=== PATIENT | female | born 1960 | race Caucasian/White ===

== ENCOUNTER 2021-07-27 16:15 | Inpatient (IN) ==
[2021-07-27] MEDS ORDERED: *HR* FentaNYL (PF) 100 MCG/2 ML VIAL IM ONE (18:39)
[2021-07-27 21:35] LABS: Hematocrit 39.7 % (35.3-44.9); Hemoglobin 13.4 g/dL (11.5-15.4); Mean Corpuscular HGB Conc 33.8 g/dL (31.6-35.5); Mean Corpuscular Volume 88.8 fL (83.0-100.0); Mean Platelet Volume 9.2 fL (9.4-12.4); Platelet Count 214 K/mcL (140-400); Red Blood Count 4.47 M/mcL (3.82-4.97); Red Cell Distribution Width 12.5 % (11.5-14.5); White Blood Count 12.4 K/mcL (4.3-11.1)
[2021-07-27 21:54] LABS: Alanine Aminotransferase 10 Units/L (7-52); Albumin/Globulin Ratio 1.4 (1.1-2.2); Alkaline Phosphatase 122 Units/L (34-104); Aspartate Amino Transferase 9 Units/L (13-39); BUN/Creatinine Ratio 14 (6-26); Bilirubin,Total 0.4 mg/dL (0.3-1.0); Blood Urea Nitrogen 7 mg/dL (8-23); Calcium 9.1 mg/dL (8.6-10.3); Carbon Dioxide 33 mEq/L (23-29); Chloride 96 mEq/L (98-107); Globulin 2.8 g/dL (2.4-3.5); Glucose 199 mg/dL (70-105); Osmolality,Calculated 290 (280-300); Potassium 3.2 mEq/L (3.5-5.1); Sodium 138 mEq/L (136-145); Total Protein 6.8 g/dL (6.4-8.9); eGFR For African Americans > 60 (> 60); eGFR For Non-African Americans > 60 (> 60)
[2021-07-27] MEDS ORDERED: *HR* FentaNYL (PF) 100 MCG/2 ML VIAL IVP ONE (22:05)
[2021-07-27] MEDS ORDERED: Acetaminophen 325 MG TABLET PO PRN (22:16)
[2021-07-27] MEDS ORDERED: Naloxone 0.4 MG/ML INJ IVP PRN (22:16)
[2021-07-27] MEDS ORDERED: Ondansetron 4 MG/2 ML VIAL IVP PRN (22:16)
[2021-07-27] MEDS ORDERED: Melatonin 3 MG TABLET PO PRN (22:16)
[2021-07-27] MEDS ORDERED: Isovue-370 500 ML BOTTLE IVP ONE (22:17)
[2021-07-27 22:28] LABS: Lymphocytes # 2.5 K/mcL (0.6-4.6); Monocytes # 0.5 K/mcL (0.0-1.3); Neutrophils # 9.4 K/mcL (1.6-8.9); Platelet Estimate Normal (Normal)
[2021-07-27] MEDS ORDERED: Nicotine 21 MG PATCH.TD24 TD ONE (22:42)
[2021-07-27] MEDS: 0.9 % Sodium Chloride 1,000 ML IVC SCH (23:25)
[2021-07-27 23:30] LABS: Bilirubin,Urine Negative (Negative); Blood,Urine Negative (Negative); Clarity,Urine Clear (Clear); Color,Urine Light-Yellow (Yellow); Glucose,Urine (UA) Normal (Normal); Ketones,Urine Negative (Negative); Leukocyte Esterase,Urine Negative (Negative); Nitrite,Urine Negative (Negative); PH,Urine 6.5 pH Units (5.0-8.0); Protein,Urine Trace mg/dL (Neg-Trace); Specific Gravity,Urine > 1.030 (1.010-1.025); Urobilinogen,Urine Normal (Normal)
[2021-07-28] MEDS ORDERED: methylPREDNISolone 125 MG/2 ML VIAL IVP ONE (00:06)
[2021-07-28 00:36] LABS: Basophils # 0.1 K/mcL (0.0-0.2); Basophils % 0.9 %; Eosinophils # 0.4 K/mcL (0.0-0.6); Eosinophils % 2.9 %; Hemoglobin 12.6 g/dL (11.5-15.4); Immature Granulocytes % 4.9 % (0-4); Lymphocytes % 15.5 %; Mean Corpuscular Hemoglobin 30.4 pg (28.0-33.3); Mean Platelet Volume 9.5 fL (9.4-12.4); Monocytes % 7.8 %; Neutrophils # 8.6 K/mcL (1.6-8.9); Platelet Count 200 K/mcL (140-400); Red Blood Count 4.14 M/mcL (3.82-4.97); Red Cell Distribution Width 12.5 % (11.5-14.5); White Blood Count 12.6 K/mcL (4.3-11.1)
[2021-07-28] MEDS: *HR* LORazepam 0.5 MG TABLET PO PRN ×2 (00:39→19:56)
[2021-07-28 00:43] LABS: INR 1.2
[2021-07-28 00:46] LABS: Activated Partial Thrombo Time 30.2 Seconds (26.0-36.0)
[2021-07-28 00:51] LABS: Alanine Aminotransferase 9 Units/L (7-52); Albumin 3.6 g/dL (3.5-5.7); Albumin/Globulin Ratio 1.4 (1.1-2.2); Alkaline Phosphatase 107 Units/L (34-104); Aspartate Amino Transferase 9 Units/L (13-39); BUN/Creatinine Ratio 15 (6-26); Bilirubin,Total 0.4 mg/dL (0.3-1.0); Blood Urea Nitrogen 6 mg/dL (8-23); Calcium 8.4 mg/dL (8.6-10.3); Carbon Dioxide 31 mEq/L (23-29); Chloride 97 mEq/L (98-107); Globulin 2.5 g/dL (2.4-3.5); Glucose 136 mg/dL (70-105); Magnesium 1.8 mg/dL (1.6-2.6); Osmolality,Calculated 280 (280-300); Phosphorous 3.3 mg/dL (2.7-4.5); Potassium 2.9 mEq/L (3.5-5.1); Sodium 135 mEq/L (136-145); Total Protein 6.1 g/dL (6.4-8.9); eGFR For African Americans > 60 (> 60); eGFR For Non-African Americans > 60 (> 60)
[2021-07-28] MEDS: Ipratropium/Albuterol Neb 3 ML IH SCH ×4 (03:27→22:20)
[2021-07-28] MEDS ORDERED: *HR* Dextrose 50 % in Water (Syg) 50 ML SYRINGE IVP PRN (04:48)
[2021-07-28] MEDS ORDERED: D5% in Water 1,000 ML IVC PRN (04:48)
[2021-07-28] MEDS ORDERED: Dextrose 4 GM Chewable Tablets PO PRN ×2 (04:48)
[2021-07-28] MEDS: predniSONE 20 MG TABLET PO SCH (08:04)
[2021-07-28] MEDS: Chlorhexidine Rinse 15 ML MOUTHWASH MM SCH ×2 (08:04→19:51)
[2021-07-28] MEDS: Cholecalciferol (D-3) 1,000 UNIT (25MCG) TABLET PO SCH (08:04)
[2021-07-28] MEDS: Multivit/Ca/Min/Fe/FA 1 TAB TABLET PO SCH (08:04)
[2021-07-28] MEDS: hydroCHLOROthiazide 25 MG TABLET PO SCH (08:45)
[2021-07-28] MEDS: Budesonide/Formoterol 160/4.5 1 PUFF INH IH SCH ×2 (09:30→22:21)
[2021-07-28] MEDS ORDERED: Isovue-370 500 ML BOTTLE IVP ONE (15:01)
[2021-07-28] MEDS: 0.9 % Sodium Chloride 1,000 ML IVC SCH (16:00)
[2021-07-29 01:05] LABS: Basophils # 0.1 K/mcL (0.0-0.2); Basophils % 0.3 %; Eosinophils % 0.1 %; Hematocrit 34.4 % (35.3-44.9); Hemoglobin 11.3 g/dL (11.5-15.4); Immature Granulocytes % 4.8 % (0-4); Lymphocytes # 1.9 K/mcL (0.6-4.6); Lymphocytes % 11.4 %; Mean Corpuscular HGB Conc 32.8 g/dL (31.6-35.5); Mean Corpuscular Hemoglobin 29.4 pg (28.0-33.3); Mean Corpuscular Volume 89.4 fL (83.0-100.0); Mean Platelet Volume 9.7 fL (9.4-12.4); Monocytes % 6.1 %; Neutrophils # 12.7 K/mcL (1.6-8.9); Platelet Count 213 K/mcL (140-400); Red Blood Count 3.85 M/mcL (3.82-4.97); Red Cell Distribution Width 12.3 % (11.5-14.5); Segmented Neutrophils % 77.3 %; White Blood Count 16.4 K/mcL (4.3-11.1)
[2021-07-29 01:43] LABS: Alanine Aminotransferase 7 Units/L (7-52); Albumin 3.6 g/dL (3.5-5.7); Albumin/Globulin Ratio 1.4 (1.1-2.2); Alkaline Phosphatase 96 Units/L (34-104); Aspartate Amino Transferase 8 Units/L (13-39); BUN/Creatinine Ratio 19 (6-26); Bilirubin,Total 0.4 mg/dL (0.3-1.0); Blood Urea Nitrogen 11 mg/dL (8-23); Calcium 8.8 mg/dL (8.6-10.3); Carbon Dioxide 33 mEq/L (23-29); Chloride 96 mEq/L (98-107); Globulin 2.6 g/dL (2.4-3.5); Glucose 133 mg/dL (70-105); Osmolality,Calculated 281 (280-300); Potassium 4.3 mEq/L (3.5-5.1); Sodium 135 mEq/L (136-145); Total Protein 6.2 g/dL (6.4-8.9); eGFR For African Americans > 60 (> 60); eGFR For Non-African Americans > 60 (> 60)
[2021-07-29] MEDS: Ipratropium/Albuterol Neb 3 ML IH SCH ×4 (04:05→22:06)
[2021-07-29] MEDS: *HR* Enoxaparin 40 MG/0.4 ML SYRINGE SQ SCH (06:23)
[2021-07-29] MEDS: Multivit/Ca/Min/Fe/FA 1 TAB TABLET PO SCH (08:08)
[2021-07-29] MEDS: Chlorhexidine Rinse 15 ML MOUTHWASH MM SCH (08:08)
[2021-07-29] MEDS: hydroCHLOROthiazide 25 MG TABLET PO SCH (08:08)
[2021-07-29] MEDS: Cholecalciferol (D-3) 1,000 UNIT (25MCG) TABLET PO SCH (08:08)
[2021-07-29] MEDS: predniSONE 20 MG TABLET PO SCH (08:09)
[2021-07-29] MEDS: Budesonide/Formoterol 160/4.5 1 PUFF INH IH SCH (09:50)
[2021-07-29] MEDS ORDERED: 0.9 % Sodium Chloride 500 ML ONE (13:41)
[2021-07-29] MEDS: Nicotine 21 MG PATCH.TD24 TD SCH (14:50)
[2021-07-29] MEDS: *HR* LORazepam 0.5 MG TABLET PO PRN (20:29)
[2021-07-29] MEDS: QUEtiapine Fumarate 25 MG TABLET PO SCH (20:29)
[2021-07-29] MEDS: Gabapentin 100 MG CAPSULE PO SCH (20:29)
[2021-07-30] MEDS: Ipratropium/Albuterol Neb 3 ML IH SCH ×4 (03:24→19:57)
[2021-07-30 05:14] LABS: Basophils % 0.4 %; Eosinophils # 0.1 K/mcL (0.0-0.6); Eosinophils % 0.8 %; Hematocrit 34.3 % (35.3-44.9); Hemoglobin 11.5 g/dL (11.5-15.4); Immature Granulocytes % 3.1 % (0-4); Mean Corpuscular HGB Conc 33.5 g/dL (31.6-35.5); Mean Corpuscular Hemoglobin 30.1 pg (28.0-33.3); Mean Corpuscular Volume 89.8 fL (83.0-100.0); Mean Platelet Volume 9.4 fL (9.4-12.4); Monocytes # 0.7 K/mcL (0.0-1.3); Neutrophils # 6.6 K/mcL (1.6-8.9); Platelet Count 171 K/mcL (140-400); Red Blood Count 3.82 M/mcL (3.82-4.97); Red Cell Distribution Width 12.7 % (11.5-14.5); Segmented Neutrophils % 61.7 %; White Blood Count 10.8 K/mcL (4.3-11.1)
[2021-07-30] MEDS: *HR* Enoxaparin 40 MG/0.4 ML SYRINGE SQ SCH (05:34)
[2021-07-30 05:37] LABS: BUN/Creatinine Ratio 26 (6-26); Blood Urea Nitrogen 14 mg/dL (8-23); Calcium 8.4 mg/dL (8.6-10.3); Carbon Dioxide 33 mEq/L (23-29); Chloride 99 mEq/L (98-107); Glucose 111 mg/dL (70-105); Osmolality,Calculated 285 (280-300); Potassium 3.4 mEq/L (3.5-5.1); Sodium 137 mEq/L (136-145); eGFR For African Americans > 60 (> 60); eGFR For Non-African Americans > 60 (> 60)
[2021-07-30] MEDS: hydroCHLOROthiazide 25 MG TABLET PO SCH (08:15)
[2021-07-30] MEDS: Aspirin 81 MG TAB.CHEW PO SCH (08:15)
[2021-07-30] MEDS: Cholecalciferol (D-3) 1,000 UNIT (25MCG) TABLET PO SCH (08:15)
[2021-07-30] MEDS: Gabapentin 100 MG CAPSULE PO SCH ×3 (08:15→20:59)
[2021-07-30] MEDS: ARIPiprazole 5 MG TABLET PO SCH (08:16)
[2021-07-30] MEDS: predniSONE 20 MG TABLET PO SCH (08:16)
[2021-07-30] MEDS: *HR* LORazepam 0.5 MG TABLET PO PRN ×2 (08:16→17:28)
[2021-07-30] MEDS: Multivit/Ca/Min/Fe/FA 1 TAB TABLET PO SCH (08:16)
[2021-07-30] MEDS: Nicotine 21 MG PATCH.TD24 TD SCH (08:16)
[2021-07-30] MEDS: Tiotropium 10 INH DOSE IH SCH (11:32)
[2021-07-30] MEDS: QUEtiapine Fumarate 25 MG TABLET PO SCH (20:58)
[2021-07-31] MEDS: Ipratropium/Albuterol Neb 3 ML IH SCH ×2 (03:40→10:19)
[2021-07-31 04:06] LABS: Basophils # 0.1 K/mcL (0.0-0.2); Basophils % 0.6 %; Eosinophils # 0.1 K/mcL (0.0-0.6); Eosinophils % 0.9 %; Hematocrit 36.5 % (35.3-44.9); Hemoglobin 12.1 g/dL (11.5-15.4); Immature Granulocytes % 4.7 % (0-4); Lymphocytes # 3.7 K/mcL (0.6-4.6); Mean Corpuscular HGB Conc 33.2 g/dL (31.6-35.5); Mean Corpuscular Hemoglobin 29.8 pg (28.0-33.3); Mean Corpuscular Volume 89.9 fL (83.0-100.0); Mean Platelet Volume 10.1 fL (9.4-12.4); Monocytes # 0.8 K/mcL (0.0-1.3); Monocytes % 6.3 %; Neutrophils # 7.4 K/mcL (1.6-8.9); Platelet Count 219 K/mcL (140-400); Red Blood Count 4.06 M/mcL (3.82-4.97); Red Cell Distribution Width 12.5 % (11.5-14.5); Segmented Neutrophils % 58.5 %; White Blood Count 12.6 K/mcL (4.3-11.1)
[2021-07-31 04:23] LABS: BUN/Creatinine Ratio 25 (6-26); Blood Urea Nitrogen 13 mg/dL (8-23); Calcium 8.8 mg/dL (8.6-10.3); Carbon Dioxide 32 mEq/L (23-29); Chloride 98 mEq/L (98-107); Glucose 96 mg/dL (70-105); Osmolality,Calculated 284 (280-300); Potassium 3.8 mEq/L (3.5-5.1); Sodium 137 mEq/L (136-145); eGFR For African Americans > 60 (> 60); eGFR For Non-African Americans > 60 (> 60)
[2021-07-31] MEDS: *HR* Enoxaparin 40 MG/0.4 ML SYRINGE SQ SCH (05:10)
[2021-07-31] MEDS: Nicotine 21 MG PATCH.TD24 TD SCH (09:10)
[2021-07-31] MEDS: Gabapentin 100 MG CAPSULE PO SCH (09:10)
[2021-07-31] MEDS: Multivit/Ca/Min/Fe/FA 1 TAB TABLET PO SCH (09:10)
[2021-07-31] MEDS: ARIPiprazole 5 MG TABLET PO SCH (09:10)
[2021-07-31] MEDS: predniSONE 20 MG TABLET PO SCH (09:11)
[2021-07-31] MEDS: hydroCHLOROthiazide 25 MG TABLET PO SCH (09:11)
[2021-07-31] MEDS: Aspirin 81 MG TAB.CHEW PO SCH (09:11)
[2021-07-31] MEDS: Cholecalciferol (D-3) 1,000 UNIT (25MCG) TABLET PO SCH (09:11)
[2021-07-31] MEDS: Tiotropium 10 INH DOSE IH SCH (10:19)
[2021-07-31 10:21] VITALS: O2SAT 95
[2021-07-31 10:44] VITALS: BP 109/67; PULSE 71; TEMP 98.1
== END 2021-07-31 12:46 | disposition home or self-care (01) | DRG 478 ==
LOC: EMEROOARM 16:15 → 4WAOSI 16:15 → OBSVTOIN 22:19 → SUATTDRO 22:19 → 4WAOSI 22:47
PROVIDERS: ADMIT Internal Medicine; ATTEND Internal Medicine

== ENCOUNTER 2021-08-25 06:01 | Inpatient (IN) ==
[2021-08-25] MEDS ORDERED: Celecoxib 200 MG CAPSULE PO ONE (06:17)
[2021-08-25] MEDS ORDERED: CeFAZolin Syr 2,000MG/20 ML 2,000 MG/20 ML SYRINGE IVPB ONE (06:26)
[2021-08-25] MEDS ORDERED: Acetaminophen IV 1,000 MG/100 ML BAG IVPB ONE (06:30)
[2021-08-25] MEDS ORDERED: Famotidine 20 MG/2 ML VIAL IVP ONE (06:30)
[2021-08-25] MEDS ORDERED: Albuterol 2.5 MG/3 ML NEBULIZER IH ONE (06:33)
[2021-08-25] MEDS: Ringers Solution, Lactated 1,000 ML IVC SCH ×2 (06:39→09:55)
[2021-08-25] MEDS ORDERED: *HR* FentaNYL (PF) 100 MCG/2 ML VIAL ONE (06:49)
[2021-08-25] MEDS ORDERED: Lidocaine -MPF 2% 2 ML VIAL ONE (06:49)
[2021-08-25] MEDS ORDERED: *HR* Midazolam HCl 2 MG/2 ML VIAL ONE (06:50)
[2021-08-25] MEDS ORDERED: Povidone-Iodine 45 ML, Sodium Chloride IRRigation 1,000 ML IR ONE (07:30)
[2021-08-25] MEDS ORDERED: EPHEDrine 50 MG/ML VIAL ONE (07:50)
[2021-08-25] MEDS ORDERED: Tranexamic Acid 1,000 MG/10 ML VIAL ONE ×2 (08:08→09:01)
[2021-08-25] MEDS ORDERED: Ondansetron 4 MG/2 ML VIAL ONE (09:01)
[2021-08-25] MEDS ORDERED: *HR* OxyCODONE Immed Rel 5 MG TABLET PO PRN ×5 (09:48→14:16)
[2021-08-25] MEDS ORDERED: *HR* OxyCODONE Immed Rel 5 MG TABLET PO ONE (10:49)
[2021-08-25] MEDS ORDERED: MOM Conc 10 ML UD.LIQ PO PRN ×2 (13:16→14:16)
[2021-08-25] MEDS ORDERED: *HR* Promethazine 25 MG/ML VIAL IM PRN ×2 (13:16→14:16)
[2021-08-25] MEDS ORDERED: *HR* HYDROmorphone (PF) 1 MG/ML SYRINGE IVP PRN ×2 (13:16→14:16)
[2021-08-25] MEDS ORDERED: Sennosides 8.6 MG TABLET PO PRN ×2 (13:16→14:16)
[2021-08-25] MEDS ORDERED: Ondansetron 4 MG/2 ML VIAL IVP PRN ×2 (13:16→14:16)
[2021-08-25] MEDS ORDERED: Naloxone 0.4 MG/ML INJ IVP PRN ×2 (13:16→14:16)
[2021-08-25] MEDS ORDERED: Ringers Solution, Lactated 1,000 ML IVC SCH (13:16)
[2021-08-25] MEDS ORDERED: Ketorolac 30 MG/ML VIAL IVP SCH (13:16)
[2021-08-25] MEDS: Ketorolac 30 MG/ML VIAL IVP SCH ×2 (15:15→21:32)
[2021-08-25] MEDS ORDERED: CeFAZolin 2 GM/120 ML BAG IVPB SCH (16:00)
[2021-08-25] MEDS: CeFAZolin 2 GM/120 ML BAG IVPB SCH ×2 (16:30→23:44)
[2021-08-25] MEDS: Ascorbic Acid 500 MG TABLET PO SCH (16:35)
[2021-08-25] MEDS ORDERED: Ascorbic Acid 500 MG TABLET PO SCH (17:00)
[2021-08-25] MEDS ORDERED: QUEtiapine Fumarate 25 MG TABLET PO SCH (21:00)
[2021-08-25] MEDS ORDERED: Apixaban 5 MG TABLET PO SCH (21:00)
[2021-08-25] MEDS: Apixaban 5 MG TABLET PO SCH (21:30)
[2021-08-25] MEDS: QUEtiapine Fumarate 25 MG TABLET PO SCH (21:31)
[2021-08-26] MEDS: Ketorolac 30 MG/ML VIAL IVP SCH ×4 (02:05→22:48)
[2021-08-26] MEDS: Apixaban 5 MG TABLET PO SCH ×2 (08:43→19:53)
[2021-08-26] MEDS: hydroCHLOROthiazide 25 MG TABLET PO SCH (08:43)
[2021-08-26] MEDS: Loratadine 10 MG TABLET PO SCH (08:44)
[2021-08-26] MEDS: Ascorbic Acid 500 MG TABLET PO SCH ×2 (08:44→15:52)
[2021-08-26] MEDS: Multivit/Ca/Min/Fe/FA 1 TAB TABLET PO SCH (08:44)
[2021-08-26] MEDS ORDERED: hydroCHLOROthiazide 25 MG TABLET PO SCH (09:00)
[2021-08-26] MEDS ORDERED: Loratadine 10 MG TABLET PO SCH (09:00)
[2021-08-26] MEDS ORDERED: Multivit/Ca/Min/Fe/FA 1 TAB TABLET PO SCH (09:00)
[2021-08-26 09:06] LABS: Basophils % 0.3 %; Eosinophils % 0.2 %; Hematocrit 25.9 % (35.3-44.9); Hemoglobin 8.7 g/dL (11.5-15.4); Immature Granulocytes % 1.6 % (0-4); Lymphocytes # 1.3 K/mcL (0.6-4.6); Lymphocytes % 14.2 %; Mean Corpuscular HGB Conc 33.6 g/dL (31.6-35.5); Mean Corpuscular Hemoglobin 30.3 pg (28.0-33.3); Mean Corpuscular Volume 90.2 fL (83.0-100.0); Mean Platelet Volume 10.1 fL (9.4-12.4); Monocytes # 0.6 K/mcL (0.0-1.3); Monocytes % 6.8 %; Neutrophils # 6.9 K/mcL (1.6-8.9); Platelet Count 214 K/mcL (140-400); Red Blood Count 2.87 M/mcL (3.82-4.97); Red Cell Distribution Width 12.4 % (11.5-14.5); Segmented Neutrophils % 76.9 %; White Blood Count 8.9 K/mcL (4.3-11.1)
[2021-08-26 09:25] LABS: BUN/Creatinine Ratio 16 (6-26); Blood Urea Nitrogen 7 mg/dL (8-23); Calcium 8.9 mg/dL (8.6-10.3); Carbon Dioxide 31 mEq/L (23-29); Chloride 98 mEq/L (98-107); Glucose 100 mg/dL (70-105); Osmolality,Calculated 278 (280-300); Potassium 3.8 mEq/L (3.5-5.1); Sodium 135 mEq/L (136-145); eGFR For African Americans > 60 (> 60); eGFR For Non-African Americans > 60 (> 60)
[2021-08-26] MEDS ORDERED: Tiotropium 10 INH DOSE IH SCH (10:00)
[2021-08-26] MEDS: Tiotropium 10 INH DOSE IH SCH (10:09)
[2021-08-26] MEDS: QUEtiapine Fumarate 25 MG TABLET PO SCH (22:48)
[2021-08-27] MEDS: Ketorolac 30 MG/ML VIAL IVP SCH ×2 (05:22→10:06)
[2021-08-27] MEDS: Tiotropium 10 INH DOSE IH SCH (08:01)
[2021-08-27 09:18] LABS: BUN/Creatinine Ratio 24 (6-26); Blood Urea Nitrogen 13 mg/dL (8-23); Calcium 8.6 mg/dL (8.6-10.3); Carbon Dioxide 32 mEq/L (23-29); Chloride 98 mEq/L (98-107); Glucose 167 mg/dL (70-105); Osmolality,Calculated 288 (280-300); Potassium 3.4 mEq/L (3.5-5.1); Sodium 137 mEq/L (136-145); eGFR For African Americans > 60 (> 60); eGFR For Non-African Americans > 60 (> 60)
[2021-08-27 09:34] LABS: Basophils % 0.6 %; Eosinophils # 0.1 K/mcL (0.0-0.6); Eosinophils % 1.3 %; Hemoglobin 9.1 g/dL (11.5-15.4); Immature Granulocytes % 2.3 % (0-4); Lymphocytes # 1.4 K/mcL (0.6-4.6); Lymphocytes % 22.4 %; Mean Corpuscular HGB Conc 33.7 g/dL (31.6-35.5); Mean Corpuscular Hemoglobin 30.1 pg (28.0-33.3); Mean Corpuscular Volume 89.4 fL (83.0-100.0); Mean Platelet Volume 10.6 fL (9.4-12.4); Monocytes # 0.3 K/mcL (0.0-1.3); Monocytes % 4.4 %; Neutrophils # 4.4 K/mcL (1.6-8.9); Platelet Count 228 K/mcL (140-400); Red Blood Count 3.02 M/mcL (3.82-4.97); Red Cell Distribution Width 12.6 % (11.5-14.5); White Blood Count 6.4 K/mcL (4.3-11.1)
[2021-08-27] MEDS: hydroCHLOROthiazide 25 MG TABLET PO SCH (10:04)
[2021-08-27] MEDS: Apixaban 5 MG TABLET PO SCH (10:05)
[2021-08-27] MEDS: Multivit/Ca/Min/Fe/FA 1 TAB TABLET PO SCH (10:06)
[2021-08-27] MEDS: Loratadine 10 MG TABLET PO SCH (10:08)
[2021-08-27] MEDS: Ascorbic Acid 500 MG TABLET PO SCH (10:12)
[2021-08-27 15:01] VITALS: BP 133/85; PULSE 68; TEMP 97.3
[2021-08-27 15:55] VITALS: O2SAT 96
== END 2021-08-27 18:40 | disposition home health service (06) | DRG 470 ==
LOC: SDCAOSI 06:01 → 4WAOSI 13:14
PROVIDERS: ADMIT Orthopaedic Surgery; ATTEND Orthopaedic Surgery